=== PATIENT | male | born 1965 | race Caucasian/White ===

== ENCOUNTER 2018-10-11 18:12 | Emergency (ER) | payer MEDICAID ==
[~2018-10-11] VITALS: Ht 167.6 cm; Wt 77.1 kg
[2018-10-11 18:13] VITALS: BP 134/98
--- NOTE | 2018-10-11 18:27 | NUR ---
53 YO M SHAN IBANEZ FOR MEDICAL CLEARANCE FOR PRE-BOOK. PT DENIES ANY COMPLAINTS. AAOX4, GCS 15. AMB W/ STEADY GAIT IN CUSTODY. BLOOD SUGAR 101. RR EVEN AND UNLABORED, LUNGS BL CLEAR. DENIES ANY PAIN OR INJURIES. ER MD NOTIFIED OF PT STATUS. PT NEEDS MET. SAFETY PRECAUTIONS IN PLACE. WILL CONITNUE TO MONITOR.
[2018-10-11 18:51] VITALS: BP 134/98
--- NOTE | 2018-10-11 18:51 | NUR ---
Patient discharged with v/s stable. Written and verbal after care instructions given and explained. Patient verbalized understanding. Ambulatory w/ steady gait in custody by Charles IBANEZ. All questions addressed prior to discharge. Ok to book.
== END 2018-10-11 18:51 ==
LOC: MED 18:12
DX: E11.9 Type 2 diabetes mellitus without complications (principal); I10 Essential (primary) hypertension; F03.90 Unspecified dementia, unspecified severity, without behavioral disturbance, psychotic disturbance, mood disturbance, and anxiety; K21.9 Gastro-esophageal reflux disease without esophagitis
CPT/HCPCS: 99283